=== PATIENT | female | born 1960 | race Caucasian/White ===

== ENCOUNTER 2021-06-20 10:47 | Inpatient (IN) | payer BC ==
[2021-06-20] MEDS ORDERED: Azithromycin 500 MG in Sodium Chloride 0.9% 250 ML IV SCH (18:00)
[2021-06-20] MEDS ORDERED: cefTRIAXone 1 GM in Sodium Chloride 0.9% 50 ML IV SCH ×5 (18:00→18:15)
[2021-06-20] MEDS ORDERED: Ondansetron 4 MG/2 ML SDV IVPUSH PRN (18:03)
[2021-06-20] MEDS ORDERED: Sodium Chloride 0.9% 10 ML Syringe FLUSH PRN (18:05)
[2021-06-20] MEDS: NS + KCl 20mEq/L 1,000 ML IV SCH (18:57)
[2021-06-20 19:07] LABS: ANION GAP 17.3 mEq/L (7-13)
[2021-06-20] MEDS: Ibuprofen 400 MG Tab PO PRN (19:53)
[2021-06-20] MEDS: diphenhydrAMINE 25 MG Tab PO PRN (19:53)
[2021-06-20] MEDS: Heparin Sodium 5,000 Units/ML Vial SUBCUT SCH (21:19)
[2021-06-20] MEDS: Psyllium 0.52 GM Cap PO SCH (21:21)
[2021-06-20] MEDS: Sodium Chloride 0.9% 10 ML Syringe FLUSH SCH (21:22)
[2021-06-21] MEDS: Heparin Sodium 5,000 Units/ML Vial SUBCUT SCH ×3 (05:34→20:42)
[2021-06-21] MEDS: NS + KCl 20mEq/L 1,000 ML IV SCH ×2 (05:34→15:56)
[2021-06-21 06:52] LABS: ANION GAP 15.3 mEq/L (7-13)
[2021-06-21] MEDS: Sodium Chloride 0.9% 10 ML Syringe FLUSH SCH ×2 (08:31→21:00)
[2021-06-21] MEDS ORDERED: Iopamidol 755 Mg/ML 100 ML Bottle IVPUSH ONE (10:01)
[2021-06-21] MEDS: Ibuprofen 400 MG Tab PO PRN (17:58)
[2021-06-21] MEDS ORDERED: cefTRIAXone 1 GM in Sodium Chloride 0.9% 50 ML IV SCH (18:00)
[2021-06-21] MEDS: diphenhydrAMINE 25 MG Tab PO PRN (20:34)
[2021-06-21] MEDS: Psyllium 0.52 GM Cap PO SCH (20:34)
[2021-06-21] MEDS ORDERED: Azithromycin 500 MG in Sodium Chloride 0.9% 250 ML IV SCH (21:00)
[2021-06-22] MEDS: Heparin Sodium 5,000 Units/ML Vial SUBCUT SCH ×2 (01:21→06:09)
[2021-06-22] MEDS: NS + KCl 20mEq/L 1,000 ML IV SCH (04:00)
[2021-06-22 06:25] LABS: ANION GAP 14.8 mEq/L (7-13)
[2021-06-22] MEDS ORDERED: Acetaminophen 325 MG Tab PO PRN (09:07)
[2021-06-22] MEDS: Sodium Chloride 0.9% 10 ML Syringe FLUSH SCH (10:08)
[2021-06-22 10:45] VITALS: BP 115/62; PULSE 68
== END 2021-06-22 10:45 | disposition home or self-care (01) | DRG 720 ==
LOC: DL.MS 10:47 → OBSVTOIN 06-21 10:47
PROVIDERS: ADMIT Internal Medicine; ATTEND Internal Medicine
DX: A41.51 Sepsis due to Escherichia coli [E. coli] (principal); N39.0 Urinary tract infection, site not specified; N17.9 Acute kidney failure, unspecified; E87.1 Hypo-osmolality and hyponatremia; K59.09 Other constipation; D64.9 Anemia, unspecified; Z28.82 Immunization not carried out because of caregiver refusal; Z88.2 Allergy status to sulfonamides; Z79.899 Other long term (current) drug therapy
CPT/HCPCS: 36415; 71260; 80048; 80076; 81001; 82607; 82746; 83010; 83540; 83605; 85025; 87040; 87077; 87086; 87088; 87186; 96365; 96372; 96375; A9270-GY; G0378; J0456; J0696; J1644; J2405; J3480; J3490; J7050; Q9967